=== PATIENT | female | born 1955 | race Caucasian/White ===

== ENCOUNTER 2017-08-27 10:36 | Emergency (ER) | payer BC, OTHER ==
[~2017-08-27] VITALS: Ht 165.1 cm; Wt 99.0 kg
[2017-08-27 10:44] VITALS: BP 137/71
== END 2017-08-27 14:45 | disposition home or self-care (01) ==
LOC: ED 13:43
DX: S16.1XXA Strain of muscle, fascia and tendon at neck level, initial encounter (principal); M48.02 Spinal stenosis, cervical region; X58.XXXA Exposure to other specified factors, initial encounter; Y93.89 Activity, other specified; Y92.89 Other specified places as the place of occurrence of the external cause; Y99.9 Unspecified external cause status
CPT/HCPCS: 72141; 99284